=== PATIENT | male | born 1990 | race Caucasian/White ===

== ENCOUNTER 2017-09-18 17:55 | Emergency (ER) | payer SELFPAY ==
[2017-09-18 18:31] VITALS: BMI 24.2
--- NOTE | 2017-09-18 19:30 | PDOC ---
History of Present Illness - General Chief Complaint: Pain, Acute Stated Complaint: flank pain Time Seen by Provider: 09/18/17 19:28 History Source: Patient - History of Present Illness Initial Comments: 09/18/17 20:08 27-year-old male with the generalized body aches, bilateral flank pain with urinary discomfort, nausea, fever, chest congestion, throat pain, generalized abdominal pain since yesterday. Reports that his children have been having URI symptoms 2 weeks prior with fevers. Patient denies headache, neck pain, chest pain, testicular pain, vomiting, diarrhea, urinary frequency, urinary urgency, hematuria, penile discharge. Past History - Past Medical History Allergies/Adverse Reactions: Allergies Allergy/AdvReac Type Severity Reaction Status Date / Time No Known Allergies Allergy Verified 09/18/17 18:25 Home Medications: Ambulatory Orders Amoxicillin/Potassium Clav [Augmentin 875-125 Tablet] 1 each PO BID #20 tablet 09/18/17 Ibuprofen 400 mg PO QID PRN #20 tablet 09/18/17 COPD: No Other medical history: denies. - Suicide/Smoking/Psychosocial Hx Smoking History: Former smoker Have you smoked in the past 12 months: No Number of Cigarettes Smoked Daily: 10 Information on smoking cessation initiated: No 'Breaking Loose' booklet given: 11/17/13 Hx Alcohol Use: No Review of Systems - Review of Systems Able to Perform ROS?: Yes Is the patient limited Niuean proficient: No Constitutional: Yes: Fever HEENTM: Yes: Throat Pain. No: Symptoms Reported, See HPI, Eye Pain, Blurred Vision, Tearing, Recent change in vision, Double Vision, Cataracts, Ear Pain, Ocular Prothesis, Ear Discharge, Nose Pain, Nose Congestion, Tinnitus, Nose Bleeding, Hearing Loss, Throat Swelling, Mouth Pain, Dental Problems, Difficulty Swallowing, Mouth Swelling, Other Respiratory: Yes: Cough ABD/GI: Yes: Nausea, Abdominal cramping (generalized). No: Symptoms Reported, See HPI, Abdominal Distended, Abd. Pain w/ defecation, Blood Streaked Bowels, Constipated, Diarrhea, Difficulty Swallowing, Poor Appetite, Poor Fluid Intake, Rectal Bleeding, Vomiting, Indigestion, Tarry Stools, Other : Yes: Flank Pain (bilateral). No: Symptoms Reported, See HPI, Burning, Dysuria, Discharge, Frequency, Hematuria, Incontinence, Pain, Urgency, Testicular Mass, Testicular Swelling, Lesions, Testicular Pain, Other Musculoskeletal: Yes: Muscle Pain (bodyaches) Neurological: No: Symptoms reported, See HPI, Headache, Numbness, Paresthesia, Pre-Existing Deficit, Seizure, Tingling, Tremors, Weakness, Unsteady Gait, Ataxia, Dizziness, Other Psychiatric: No: Anxiety, Depression, Frequent Crying, Stressors, Sleep Pattern Change, Emotional Problems, Mood Swings, Change in Appetite, Other *Physical Exam - Vital Signs Last Vital Signs Temp Pulse Resp BP Pulse Ox 100.5 F H 109 H 18 125/63 99 09/18/17 18:26 09/18/17 18:26 09/18/17 18:26 09/18/17 18:26 09/18/17 18:26 - Physical Exam General Appearance: Yes: Mild Distress HEENT: positive: Tonsillar Erythema Neck: positive: Lymphadenopathy (R), Lymphadenopathy (L) Respiratory/Chest: positive: Rhonchi Cardiovascular: positive: Regular Rhythm, Tachycardia Gastrointestinal/Abdominal: positive: Normal Bowel Sounds, Soft Musculoskeletal: positive: Normal Inspection Extremity: positive: Normal Capillary Refill, Normal Inspection, Normal Range of Motion Integumentary: positive: Normal Color, Dry, Warm Neurologic: positive: Fully Oriented, Alert, Normal Mood/Affect ED Treatment Course - LABORATORY CBC & Chemistry Diagram: 09/18/17 19:50 09/18/17 19:50 Medical Decision Making - Medical Decision Making 09/18/17 20:22 A: Strep pharyngitis; fever; UTI P: cbc cmp zofran ibuprofen IVF *DC/Admit/Observation/Transfer Diagnosis at time of Disposition: Strep pharyngitis, Fever and chills UTI (urinary tract infection) Qualifiers: Urinary tract infection type: acute cystitis Hematuria presence: without hematuria Qualified Code(s): N30.00 - Acute cystitis without hematuria - Discharge Dispostion Disposition: HOME - Prescriptions Prescriptions: Amoxicillin/Potassium Clav [Augmentin 875-125 Tablet] 1 each PO BID #20 tablet Ibuprofen 400 mg PO QID PRN #20 tablet PRN Reason: Fever - Referrals - Patient Instructions Printed Discharge Instructions: Strep Throat Additional Instructions: drink plenty of fluids. take tylenol every 4-6 hours as needed for bodyaches and fever take ibuprofen every 6 hours as needed for fever. take augmentin as prescribed. follow up with your doctor as soon as possible, - Post Discharge Activity Forms/Work/School Notes: Back to Work
[2017-09-18] MEDS ORDERED: SODIUM CHLORIDE 1,000 ML IV STA (19:31)
[2017-09-18] MEDS ORDERED: IBUPROFEN 600 MG TABLET (FP) PO ONE ×2 (19:32→20:01)
[2017-09-18] MEDS ORDERED: ALBUTEROL SO4 2.5/IPRATROPIUM 0.5 INH SOL 3 ML VIAL.NEB. NEB ONE ×2 (19:42→19:56)
[2017-09-18] MEDS ORDERED: ONDANSETRON 4 MG/2 ML VIAL IVPUSH ONE (19:42)
[2017-09-18] MEDS ORDERED: ONDANSETRON 4 MG/2 ML VIAL ONE (19:45)
[2017-09-18 20:09] LABS: HEMOGLOBIN 15.5 GM/dL (11.7-16.9); LYMPH % 6.8 % (8-40); URINE APPEARANCE CLEAR; URINE BILIRUBIN NEGATIVE (NEGATIVE); URINE BLOOD NEGATIVE (NEGATIVE); URINE COLOR STRAW; URINE GLUCOSE (UA) NEGATIVE (NEGATIVE); URINE KETONE NEGATIVE (NEGATIVE); URINE NITRITE NEGATIVE (NEGATIVE); URINE PROTEIN NEGATIVE (NEGATIVE); URINE UROBILINOGEN NEGATIVE mg/dL (0.2-1.0)
[2017-09-18 20:11] LABS: URINE LEUK ESTERASE 1+ (NEGATIVE)
[2017-09-18 20:14] LABS: BASO % 0.4 % (0-2.0); EOS % 0.3 % (0-4.5); EPI CELLS RARE /HPF (FEW); HEMATOCRIT 46.3 % (35.4-49); MCH 29.7 pg (25.7-33.7); MCHC 33.5 g/dl (32.0-35.9); MEAN CELL VOLUME 88.6 fl (80-96); MEAN PLT VOLUME 9.1 fl (7.5-11.1); NEUT % 85.5 % (42.8-82.8); PLATELET COUNT 200 K/MM3 (134-434); RBC 5.22 M/mm3 (4.00-5.60); RDW 12.7 % (11.9-15.9); WHITE BLOOD COUNT 12.8 K/mm3 (4.0-10.0)
[2017-09-18 20:36] LABS: ALBUMIN 4.3 g/dl (3.4-5.0); ALK PHOS 73 U/L (45-117); ANION GAP 6 (8-16); BILIRUBIN,TOTAL 0.7 mg/dL (0.2-1.0); BLOOD UREA NITROGEN 11 mg/dL (7-18); CALCIUM 8.4 mg/dL (8.5-10.1); CHLORIDE 98 mmol/L (98-107); CO2 29 mmol/L (21-32); GLUCOSE,RANDOM 98 mg/dL (74-106); LIPASE 86 U/L (73-393); POTASSIUM 3.9 mmol/L (3.5-5.1); SGOT/AST 21 U/L (15-37); SGPT/ALT 40 U/L (12-78); SODIUM 133 mmol/L (136-145); TOT PROT 7.8 g/dl (6.4-8.2)
[2017-09-18] MEDS ORDERED: ACETAMINOPHEN 325 MG TABLET (FP) PO ONE (21:03)
[2017-09-18] MEDS ORDERED: ACETAMINOPHEN 325 MG TABLET (FP) ONE (21:14)
[2017-09-18] MEDS ORDERED: AMOX TR/POT CLAV 875MG/125MG TABLETS (FP) PO ONE (21:20)
[2017-09-18] MEDS ORDERED: AMOX TR/POT CLAV 875MG/125MG TABLETS (FP) ONE (21:29)
[2017-09-18 21:37] VITALS: BP 124/59; PULSE 100; TEMP 99.9
== END 2017-09-18 21:46 | disposition home or self-care (01) ==
LOC: JER 17:55
PROC: 3E0F7GC Introduction of Other Therapeutic Substance into Respiratory Tract, Via Natural or Artificial Opening (ICD-10-PCS; principal; 2017-09-18)
PROC: 3E0337Z Introduction of Electrolytic and Water Balance Substance into Peripheral Vein, Percutaneous Approach (ICD-10-PCS; 2017-09-18)
PROC: 3E033GC Introduction of Other Therapeutic Substance into Peripheral Vein, Percutaneous Approach (ICD-10-PCS; 2017-09-18)
DX: J02.0 Streptococcal pharyngitis (principal); B95.0 Streptococcus, group A, as the cause of diseases classified elsewhere; N30.00 Acute cystitis without hematuria
CPT/HCPCS: 36415; 71046-TC-FY; 80053; 81003; 81015; 83690; 85025; 87070; 87077; 87086; 87430; 87804; 99282-25

== ENCOUNTER 2018-03-15 12:46 | Emergency (ER) | payer OTHER ==
[2018-03-15 12:59] VITALS: TEMP 97; BMI 25.8
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
[2018-03-15] MEDS ORDERED: IBUPROFEN 600 MG TABLET (FP) PO ONE ×2 (14:02→14:20)
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
[2018-03-15 18:34] VITALS: BP 121/69; PULSE 64
== END 2018-03-15 15:50 | disposition home or self-care (01) ==
LOC: JER 12:46
DX: M54.2 Cervicalgia (principal); V43.52XA Car driver injured in collision with other type car in traffic accident, initial encounter; Y93.89 Activity, other specified; Y92.410 Unspecified street and highway as the place of occurrence of the external cause
CPT/HCPCS: 70450-TC; 72125-TC; 99282-25

== ENCOUNTER 2019-03-10 22:22 | Emergency (ER) | payer SELFPAY ==
[2019-03-10 22:27] VITALS: BMI 29.0
[2019-03-10] MEDS ORDERED: DIPHTH,PERTUSS(ACELL),TET 0.5 ML DISP.SYRIN IM ONE ×2 (22:36→23:08)
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
[2019-03-11] MEDS ORDERED: IBUPROFEN 600 MG TABLET (FP) PO ONE ×2 (00:41→00:52)
[2019-03-11 02:50] VITALS: BP 128/72; PULSE 73; TEMP 97.9
== END 2019-03-11 01:15 | disposition home or self-care (01) ==
LOC: JER 22:22
PROC: 3E0234Z Introduction of Serum, Toxoid and Vaccine into Muscle, Percutaneous Approach (ICD-10-PCS; principal; 2019-03-10)
DX: S91.312A Laceration without foreign body, left foot, initial encounter (principal); W26.8XXA Contact with other sharp object(s), not elsewhere classified, initial encounter; Y93.89 Activity, other specified; Y92.832 Beach as the place of occurrence of the external cause; Y99.8 Other external cause status
CPT/HCPCS: 73630-TC-RT-FY; 90715; 99283-25

== ENCOUNTER 2020-12-21 13:54 | Emergency (ER) | payer OTHER ==
[2020-12-21 14:08] VITALS: BP 142/88; PULSE 90; TEMP 98; BMI 29.0
[2020-12-21] MEDS ORDERED: KETOROLAC TROMETHAMINE 60 MG/2 ML VIAL IM ONE (15:04)
[2020-12-21] MEDS ORDERED: KETOROLAC TROMETHAMINE 60 MG/2 ML VIAL ONE (15:12)
== END 2020-12-21 15:30 | disposition home or self-care (01) ==
LOC: JER 13:54
PROC: 3E0233Z Introduction of Anti-inflammatory into Muscle, Percutaneous Approach (ICD-10-PCS; principal; 2020-12-21)
DX: S76.302A Unspecified injury of muscle, fascia and tendon of the posterior muscle group at thigh level, left thigh, initial encounter (principal)
CPT/HCPCS: 73560-TC-LT-FY; 99284-25

== ENCOUNTER 2021-07-22 11:12 | Emergency (ER) | payer OTHER ==
[2021-07-22 11:30] VITALS: BMI 28.1
[2021-07-22] MEDS ORDERED: SODIUM CHLORIDE 1,000 ML IV STA (11:56)
[2021-07-22] MEDS ORDERED: ALBUTEROL SO4 2.5/IPRATROPIUM 0.5 INH SOL 3 ML VIAL.NEB. NEB ONE ×2 (11:56→14:28)
[2021-07-22] MEDS ORDERED: ACETAMINOPHEN 1000 MG/100 ML VIAL IVPB ONE (11:57)
[2021-07-22] MEDS ORDERED: ACETAMINOPHEN INJECTION 100 ML IVPB ONE (12:27)
[2021-07-22 13:02] LABS: BASO % 0.5 % (0-2.0); EOS % 1.6 % (0-4.5); HEMATOCRIT 45.3 % (35.4-49); HEMOGLOBIN 15.6 GM/dL (11.7-16.9); MCH 30.8 pg (25.7-33.7); MCHC 34.5 g/dl (32.0-35.9); MEAN CELL VOLUME 89.2 fl (80-96); MEAN PLT VOLUME 8.6 fl (7.5-11.1); MONO % 16.4 % (3.8-10.2); NEUT % 69.5 % (42.8-82.8); PLATELET COUNT 185 10^3/uL (134-434); RBC 5.08 M/mm3 (4.00-5.60); RDW 12.6 % (11.9-15.9); WHITE BLOOD COUNT 6.2 K/mm3 (4.0-10.0)
[2021-07-22 13:26] LABS: CALCIUM 9.1 mg/dL (8.5-10.1)
[2021-07-22 13:27] LABS: ALBUMIN 4.2 g/dl (3.4-5.0); BLOOD UREA NITROGEN 15.5 mg/dL (7-18)
[2021-07-22 13:30] LABS: CREATININE 1.1 mg/dL (0.55-1.3)
[2021-07-22 13:31] LABS: BILIRUBIN,TOTAL 0.8 mg/dL (0.2-1); TOT PROT 8.2 g/dl (6.4-8.2)
[2021-07-22 16:19] VITALS: BP 113/63; PULSE 82; TEMP 99.2
== END 2021-07-22 16:29 | disposition home or self-care (01) ==
LOC: JER 11:12
PROC: 3E0333Z Introduction of Anti-inflammatory into Peripheral Vein, Percutaneous Approach (ICD-10-PCS; principal; 2021-07-22)
PROC: 3E0F7GC Introduction of Other Therapeutic Substance into Respiratory Tract, Via Natural or Artificial Opening (ICD-10-PCS; 2021-07-22)
PROC: 3E0337Z Introduction of Electrolytic and Water Balance Substance into Peripheral Vein, Percutaneous Approach (ICD-10-PCS; 2021-07-22)
DX: J06.9 Acute upper respiratory infection, unspecified (principal)
CPT/HCPCS: 36415; 71046-TC-FY; 80053; 85025; 87804; 99284-25; C9803; J0131; U0003; U0005

== ENCOUNTER 2022-03-29 15:05 | Emergency (ER) | payer OTHER ==
[2022-03-29 15:32] VITALS: BP 139/87; PULSE 87; RESP 20; TEMP 98; BMI 29.6
[2022-03-29 18:15] LABS: URINE APPEARANCE TURBID; URINE BILIRUBIN NEGATIVE (NEGATIVE); URINE COLOR YELLOW; URINE GLUCOSE (UA) NEGATIVE (NEGATIVE); URINE KETONE NEGATIVE (NEGATIVE); URINE LEUK ESTERASE NEGATIVE (NEGATIVE); URINE NITRITE NEGATIVE (NEGATIVE); URINE PROTEIN NEGATIVE (NEGATIVE); URINE UROBILINOGEN 0.2 mg/dL (0.2-1.0)
[2022-03-29] MEDS ORDERED: DOXYCYCLINE HYCLATE 100 MG CAPSULE PO ONE ×2 (18:33→19:18)
[2022-03-29] MEDS ORDERED: cefTRIAXone SODIUM 1 GM VIAL ONE (19:18)
[2022-03-29] MEDS ORDERED: LIDOCAINE HCL 1%, 10 MG/ML (20ML VIAL) ONE (19:18)
== END 2022-03-29 19:27 | disposition home or self-care (01) ==
LOC: JER 15:05
DX: N50.812 Left testicular pain (principal); R10.9 Unspecified abdominal pain
CPT/HCPCS: 36415; 76775-TC; 76870-TC; 81003; 87086; 87491; 87591; 99284-25

== ENCOUNTER 2022-07-15 14:20 | Emergency (ER) | payer OTHER ==
[2022-07-15 14:41] VITALS: BP 123/76; PULSE 64; RESP 16; TEMP 98.7; BMI 30.8
[2022-07-15 15:46] LABS: HEMATOCRIT 46.8 % (35.4-49); HEMOGLOBIN 15.7 G/dL (11.7-16.9); MCH 29.8 pg (25.7-33.7); MCHC 33.4 g/dl (32.0-35.9); MEAN CELL VOLUME 89.1 fl (80-96); MEAN PLT VOLUME 8.4 fl (7.5-11.1); PLATELET COUNT 244.9 10^3/uL (134-434); RBC 5.25 10^6/uL (4.00-5.60); RDW 13.5 % (11.9-15.9); WHITE BLOOD COUNT 7.7 10^3/uL (4.0-10.8)
[2022-07-15] MEDS ORDERED: FAMOTIDINE 20 MG TABLET PO ONE (15:47)
[2022-07-15] MEDS ORDERED: diphenhydrAMINE HCL 25 MG CAPSULE (FP) PO ONE ×2 (15:47→15:58)
[2022-07-15 15:53] LABS: ALBUMIN 4.3 g/dl (3.4-5.0); BILIRUBIN,TOTAL 0.6 mg/dl (0.2-1); CALCIUM 9.1 mg/dl (8.5-10); CREATININE 0.8 mg/dl (0.55-1.3); TOT PROT 7.2 g/dl (6.4-8.2)
[2022-07-15] MEDS ORDERED: FAMOTIDINE 20 MG TABLET ONE (15:58)
== END 2022-07-15 16:48 | disposition home or self-care (01) ==
LOC: FER 14:20
DX: R21 Rash and other nonspecific skin eruption (principal); R51.9 Headache, unspecified; R53.83 Other fatigue
CPT/HCPCS: 0241U-QW; 36415; 80053; 81003; 85027; 86780; 87086; 87491; 87529; 87591; 87593; 87661; 99283-25

== ENCOUNTER 2023-12-26 22:25 | Emergency (ER) | payer OTHER ==
[2023-12-26 22:41] VITALS: BP 117/72; PULSE 64; RESP 18; TEMP 98; BMI 30.5
== END 2023-12-26 23:42 | disposition home or self-care (01) ==
LOC: JERFT 22:25 → JER 22:25 → JERFT 23:42
DX: S89.92XA Unspecified injury of left lower leg, initial encounter (principal); Y93.B3 Activity, free weights
CPT/HCPCS: 73562-TC-LT-FY; 99283-25

== ENCOUNTER 2024-02-25 11:18 | Emergency (ER) | payer OTHER ==
[2024-02-25] MEDS: SODIUM CHLORIDE 0.9% 1000 ML INFUS.BAG IV ONE (11:45)
[2024-02-25] MEDS ORDERED: ONDANSETRON *ODT* 4 MG TABLET SL ONE (11:45)
[2024-02-25 11:46] VITALS: BMI 29.0
[2024-02-25] MEDS ORDERED: ACETAMINOPHEN INJECTION 100 ML IVPB ONE (11:56)
[2024-02-25] MEDS ORDERED: DEXAMETHASONE SOD PHOSPHATE 10 MG/1 ML VIAL ONE (11:56)
[2024-02-25] MEDS: DEXAMETHASONE SOD PHOSPHATE 10 MG/1 ML VIAL PO ONE (12:07)
[2024-02-25] MEDS: ACETAMINOPHEN 1000 MG/100 ML BAG IVPB ONE (12:07)
[2024-02-25 12:10] LABS: HEMATOCRIT 46.6 % (35.4-49); HEMOGLOBIN 15.7 G/dL (11.7-16.9); MCH 30.5 pg (25.7-33.7); MCHC 33.6 g/dl (32.0-35.9); MEAN CELL VOLUME 90.9 fl (80-96); MEAN PLT VOLUME 9.2 fl (7.5-11.1); PLATELET COUNT 166.2 10^3/uL (134-434); RBC 5.13 10^6/uL (4.00-5.60); RDW 13.4 % (11.9-15.9); WHITE BLOOD COUNT 17.5 10^3/uL (4.0-10.8)
[2024-02-25 12:17] LABS: PLATELET ESTIMATE ADEQUATE
[2024-02-25] MEDS ORDERED: FAMOTIDINE 20 MG/50 ML IVPB 20 MG/50 ML MG IVPB ONE (12:35)
[2024-02-25] MEDS: FAMOTIDINE 20 MG/50 ML IVPB 20 MG/50 ML MG IVPB ONE (12:38)
[2024-02-25] MEDS: ACETAMINOPHEN 500 MG TABLET (FP) PO ONE (12:39)
[2024-02-25 13:05] LABS: ALBUMIN 3.7 g/dl (3.4-5.0); BILIRUBIN,TOTAL 0.7 mg/dl (0.2-1); CALCIUM 8.4 mg/dl (8.5-10.1); POTASSIUM 3.9 mmol/L (3.5-5.1); TOT PROT 5.8 g/dl (6.4-8.2)
[2024-02-25] MEDS ORDERED: KETOROLAC TROMETHAMINE 15 MG/ML VIAL ONE (13:17)
[2024-02-25] MEDS: KETOROLAC TROMETHAMINE 15 MG/ML VIAL IVPUSH ONE (13:22)
[2024-02-25 14:18] VITALS: BP 117/69; PULSE 90; RESP 18; TEMP 99
[2024-02-25] MEDS ORDERED: PENICILLIN G BENZATHINE 1,200,000 UNIT/2 ML PFS IM ONE (14:21)
[2024-02-25] MEDS: PENICILLIN G BENZATHINE 1,200,000 UNIT/2 ML PFS IM ONE (14:27)
== END 2024-02-25 14:34 | disposition home or self-care (01) ==
LOC: FER 11:18
PROC: 3E033GC Introduction of Other Therapeutic Substance into Peripheral Vein, Percutaneous Approach (ICD-10-PCS; principal; 2024-02-25)
PROC: 3E033NZ Introduction of Analgesics, Hypnotics, Sedatives into Peripheral Vein, Percutaneous Approach (ICD-10-PCS; 2024-02-25)
PROC: 3E0333Z Introduction of Anti-inflammatory into Peripheral Vein, Percutaneous Approach (ICD-10-PCS; 2024-02-25)
PROC: 3E02329 Introduction of Other Anti-infective into Muscle, Percutaneous Approach (ICD-10-PCS; 2024-02-25)
DX: R50.9 Fever, unspecified (principal); J02.0 Streptococcal pharyngitis; M54.50 Low back pain, unspecified; R11.2 Nausea with vomiting, unspecified; R30.0 Dysuria; R00.0 Tachycardia, unspecified; M79.10 Myalgia, unspecified site; R10.84 Generalized abdominal pain; Z20.822 Contact with and (suspected) exposure to COVID-19
CPT/HCPCS: 0241U-QW; 36415; 80053; 81003; 81015; 83690; 85027; 87086; 87651; 99284-25; J0131; J1100